=== PATIENT | female | born 1965 | race Caucasian/White ===

== ENCOUNTER → 2021-08-08 16:49 | Outpatient (CLI) | payer BC, OTHER, SELFPAY ==
--- NOTE | ~2021-08-08 | XR_ITS ---
XR hip LT min 2V 08/08/2021 17:07 Indication: Left hip pain Procedure: 2 views left hip Comparison: No prior studies for comparison. Findings: No fracture, subluxation or dislocation. There is mild osteoarthritis of the left hip. No s oft tissue abnormality. There are pelvic phleboliths. No foreign bodies. Impression: 1: Mild osteoarthritis of the left hip. Reviewed, dictated and finalized at location B. Impression: 1: Mild osteoarthritis of the left hip.
== END ==
DX: M17.12 Unilateral primary osteoarthritis, left knee (principal)
CPT/HCPCS: 73502